=== PATIENT | female | born 1970 | race African-American/Black ===

== ENCOUNTER 2023-07-08 09:11 | Observation (INO) | payer OTHER ==
[2023-07-08 11:42] LABS: HEMATOCRIT 35.4 % (32.4-45.2); HEMOGLOBIN 11.3 GM/dL (10.7-15.3); MCH 26.6 pg (25.7-33.7); MEAN CELL VOLUME 83.2 fl (80-96); MEAN PLT VOLUME 7.3 fl (7.5-11.1); PLATELET COUNT 274 10^3/uL (134-434); RBC 4.26 M/mm3 (3.60-5.2); RDW 15.1 % (11.6-15.6); WHITE BLOOD COUNT 5.7 K/mm3 (4.0-10.0)
[2023-07-08] MEDS ORDERED: DIVALPROEX NA *ER* EXTEND REL 250 MG TABLET.SA ONE (11:43)
[2023-07-08] MEDS: DIVALPROEX NA *ER* EXTEND REL 250 MG TABLET.SA PO ONE (11:56)
[2023-07-08 11:59] LABS: CHLORIDE 105 mmol/L (98-107); SODIUM 136 mmol/L (136-145)
[2023-07-08 12:01] LABS: ALBUMIN 2.9 g/dl (3.4-5.0); CALCIUM 9.1 mg/dL (8.5-10.1)
[2023-07-08 12:02] LABS: BLOOD UREA NITROGEN 14.7 mg/dL (7-18); CO2 28 mmol/L (21-32); GLUCOSE,RANDOM 89 mg/dL (74-106)
[2023-07-08 12:04] LABS: SGPT/ALT 18 U/L (13-61)
[2023-07-08 12:05] LABS: CREATININE 0.8 mg/dL (0.55-1.3); SGOT/AST 45 U/L (15-37)
[2023-07-08 12:06] LABS: BILIRUBIN,TOTAL 0.3 mg/dL (0.2-1); TOT PROT 8.4 g/dl (6.4-8.2)
[2023-07-08 12:08] LABS: ALK PHOS 116 U/L (45-117)
[2023-07-08 12:09] LABS: ANION GAP 4 mmol/L (4-13); POTASSIUM 6.7 mmol/L (3.5-5.1)
[2023-07-08] MEDS ORDERED: VALPROATE SODIUM 500 MG/5 ML VIAL ONE (12:25)
[2023-07-08] MEDS: VALPROATE SODIUM 500 MG/5 ML VIAL IVPB ONE (13:13)
[2023-07-08 13:56] LABS: PH,URINE 7.5 (5.0-8.0); URINE APPEARANCE CLEAR; URINE BILIRUBIN NEGATIVE (NEGATIVE); URINE COLOR YELLOW; URINE GLUCOSE (UA) NEGATIVE (NEGATIVE); URINE KETONE NEGATIVE (NEGATIVE); URINE LEUK ESTERASE NEGATIVE (NEGATIVE); URINE NITRITE NEGATIVE (NEGATIVE); URINE PROTEIN NEGATIVE (NEGATIVE); URINE UROBILINOGEN 0.2 mg/dL (0.2-1.0)
[2023-07-08 14:15] LABS: POTASSIUM 3.8 mmol/L (3.5-5.1)
[2023-07-08 14:16] LABS: CALCIUM 9.1 mg/dL (8.5-10.1)
[2023-07-08 14:20] LABS: CREATININE 0.6 mg/dL (0.55-1.3)
[2023-07-08] MEDS ORDERED: levETIRAcetam 500 MG/5 ML INJECTION VIAL IVPB ONE (15:49)
[2023-07-08] MEDS ORDERED: CEFTRIAXONE 1 GM/50 ML BAG ONE (15:49)
[2023-07-08] MEDS ORDERED: AZITHROMYCIN IVPB 500 MG/250 ML BAG IVPB ONE (15:49)
[2023-07-08] MEDS: CEFTRIAXONE 1,000 MG in DEXTROSE 5%-WATER - 50 ML IVPB ONE (16:07)
[2023-07-08] MEDS: AZITHROMYCIN IVPB 500 MG in DEXTROSE 5%-WATER - 250 ML IVPB ONE (16:07)
[2023-07-08] MEDS: levETIRAcetam 500 MG/5 ML INJECTION VIAL IVPB ONE (16:07)
[2023-07-08] MEDS ORDERED: ALBUTEROL SO4 0.083% IH SOL 2.5 MG/3 ML VIAL.NEB. NEB PRN (17:11)
[2023-07-08] MEDS ORDERED: clonazePAM 0.5 MG TABLET ONE (22:40)
[2023-07-08] MEDS ORDERED: risperiDONE 0.5 MG TABLET ONE (22:40)
[2023-07-08] MEDS ORDERED: DOCUSATE SODIUM 100 MG CAPSULE (FP) PO ONE (22:41)
[2023-07-08] MEDS ORDERED: HEPARIN NA (PORCINE) 5,000 UNITS/ML 1ML VIAL ONE (22:41)
[2023-07-08] MEDS: HEPARIN NA (PORCINE) 5,000 UNITS/ML 1ML VIAL SQ SCH (22:54)
[2023-07-08] MEDS: DOCUSATE SODIUM 100 MG CAPSULE (FP) PO SCH (23:04)
[2023-07-08] MEDS: clonazePAM 0.5 MG TABLET PO SCH (23:04)
[2023-07-08] MEDS: risperiDONE 1 MG TABLET PO SCH (23:05)
[2023-07-09 00:24] VITALS: BMI 35.9
[2023-07-09 08:41] VITALS: RESP 18
[2023-07-09] MEDS: DIVALPROEX SODIUM 250 MG TABLET E.C. PO SCH (09:15)
[2023-07-09] MEDS: PANTOPRAZOLE 20 MG TABLET PO SCH (09:16)
[2023-07-09] MEDS: LEVOTHYROXINE NA 25 MCG TABLET (FP) PO SCH (09:16)
[2023-07-09] MEDS: BENZTROPINE MESYLATE 2 MG TABLET PO SCH (09:16)
[2023-07-09 09:31] LABS: BASO % 0.8 % (0-2.0); EOS % 1.9 % (0-4.5); HEMATOCRIT 33.9 % (32.4-45.2); HEMOGLOBIN 10.9 GM/dL (10.7-15.3); LYMPH % 38.6 % (8-40); MCH 26.5 pg (25.7-33.7); MCHC 32.3 g/dl (32.0-36.0); MEAN PLT VOLUME 7.8 fl (7.5-11.1); MONO % 6.8 % (3.8-10.2); NEUT % 51.9 % (42.8-82.8); PLATELET COUNT 288 10^3/uL (134-434); RBC 4.14 M/mm3 (3.60-5.2); RDW 14.8 % (11.6-15.6); WHITE BLOOD COUNT 5.5 K/mm3 (4.0-10.0)
[2023-07-09 09:41] LABS: POTASSIUM 4.2 mmol/L (3.5-5.1)
[2023-07-09 09:48] LABS: BLOOD UREA NITROGEN 14.9 mg/dL (7-18); CALCIUM 9.7 mg/dL (8.5-10.1)
[2023-07-09 09:51] LABS: CREATININE 0.7 mg/dL (0.55-1.3)
[2023-07-10] MEDS: BENZTROPINE MESYLATE 1 MG TABLET PO SCH (10:13)
[2023-07-10] MEDS: CALCIUM 500MG/VIT-D 200 UNITS COMBO TABLET (FP) PO SCH (10:14)
[2023-07-10 10:36] LABS: POTASSIUM 4.1 mmol/L (3.5-5.1)
[2023-07-10 10:38] LABS: ALBUMIN 2.7 g/dl (3.4-5.0); BLOOD UREA NITROGEN 12.5 mg/dL (7-18); CALCIUM 9.8 mg/dL (8.5-10.1)
[2023-07-10 10:41] LABS: CREATININE 0.7 mg/dL (0.55-1.3)
[2023-07-10 10:43] LABS: BILIRUBIN,TOTAL 0.3 mg/dL (0.2-1); TOT PROT 7.9 g/dl (6.4-8.2)
[2023-07-10] MEDS: DIVALPROEX SODIUM 500 MG TABLET E.C. PO SCH (11:46)
[2023-07-10] MEDS ORDERED: LEVOTHYROXINE NA 50 MCG TABLET (FP) PO SCH ×2 (22:54→23:00)
[2023-07-11] MEDS: LEVOTHYROXINE NA 50 MCG TABLET (FP) PO SCH (06:09)
[2023-07-11] MEDS: amLODIPine BESYLATE 5 MG TABLET (FP) PO SCH (09:11)
[2023-07-11 09:16] LABS: BASO % 0.7 % (0-2.0); EOS % 3.2 % (0-4.5); HEMOGLOBIN 11.6 GM/dL (10.7-15.3); LYMPH % 48.1 % (8-40); MCH 27.2 pg (25.7-33.7); MCHC 33.2 g/dl (32.0-36.0); MEAN CELL VOLUME 81.9 fl (80-96); MEAN PLT VOLUME 7.8 fl (7.5-11.1); MONO % 7.6 % (3.8-10.2); NEUT % 40.4 % (42.8-82.8); PLATELET COUNT 293 10^3/uL (134-434); RBC 4.27 M/mm3 (3.60-5.2); RDW 15.1 % (11.6-15.6); WHITE BLOOD COUNT 4.4 K/mm3 (4.0-10.0)
[2023-07-11 09:37] LABS: POTASSIUM 4.3 mmol/L (3.5-5.1)
[2023-07-11 09:42] LABS: CALCIUM 9.6 mg/dL (8.5-10.1)
[2023-07-11 09:43] LABS: BLOOD UREA NITROGEN 12.7 mg/dL (7-18); MAGNESIUM 2.1 mg/dL (1.8-2.4)
[2023-07-11 09:46] LABS: CREATININE 0.6 mg/dL (0.55-1.3); PHOSPHOROUS 3.7 mg/dL (2.5-4.9)
[2023-07-11 09:47] LABS: BILIRUBIN,TOTAL 0.4 mg/dL (0.2-1); TOT PROT 8.8 g/dl (6.4-8.2)
[2023-07-11 13:40] VITALS: BP 136/90; PULSE 74; TEMP 98.2
[2023-07-12] MEDS ORDERED: LEVOTHYROXINE NA 25 MCG TABLET (FP) PO SCH ×2 (07:00→22:53)
== END 2023-07-11 14:11 | disposition home or self-care (01) ==
LOC: JER 09:11 → INTOOBSV 15:59 → UNDOADMOB 15:59 → JERBED 15:59 → J6S 23:58 → JERBED 23:58 → J6S 23:58
PROVIDERS: ADMIT Internal Medicine; ATTEND Internal Medicine
PROC: 3E03329 Introduction of Other Anti-infective into Peripheral Vein, Percutaneous Approach (ICD-10-PCS; principal; 2023-07-08)
PROC: 3E023GC Introduction of Other Therapeutic Substance into Muscle, Percutaneous Approach (ICD-10-PCS; 2023-07-08)
PROC: 3E033GC Introduction of Other Therapeutic Substance into Peripheral Vein, Percutaneous Approach (ICD-10-PCS; 2023-07-08)
DX: G40.909 Epilepsy, unspecified, not intractable, without status epilepticus (principal); R93.89 Abnormal findings on diagnostic imaging of other specified body structures; F84.0 Autistic disorder; F41.9 Anxiety disorder, unspecified; E03.9 Hypothyroidism, unspecified; I10 Essential (primary) hypertension; Z96.643 Presence of artificial hip joint, bilateral
CPT/HCPCS: 36415; 70450-TC; 71045-TC-FY; 71046-TC-FY; 72125-TC; 80048; 80053; 80164; 80307; 81003; 83735; 84100; 85025; 85027; 93005; 93010; 94010; 96365; 96367; 96372; 96375; 99285-25; G0378; J1644

== ENCOUNTER 2023-09-01 04:20 | Observation (INO) | payer OTHER ==
[2023-09-01] MEDS ORDERED: ACETAMINOPHEN INJECTION 100 ML IVPB ONE (05:01)
[2023-09-01] MEDS: ACETAMINOPHEN 1000 MG/100 ML BAG IVPB ONE (05:31)
[2023-09-01] MEDS: LACTATED RINGERS SOLUTION 1000 ML INFUS.BAG IV ONE ×2 (05:31→11:17)
[2023-09-01 05:51] LABS: BASO % 0.3 % (0-2.0); EOS % 0.1 % (0-4.5); HEMATOCRIT 38.2 % (32.4-45.2); HEMOGLOBIN 12.1 GM/dL (10.7-15.3); LYMPH % 10.6 % (8-40); MCH 27.1 pg (25.7-33.7); MCHC 31.7 g/dl (32.0-36.0); MEAN CELL VOLUME 85.5 fl (80-96); MEAN PLT VOLUME 8.5 fl (7.5-11.1); MONO % 9.8 % (3.8-10.2); NEUT % 79.2 % (42.8-82.8); PLATELET COUNT 275 10^3/uL (134-434); RBC 4.47 M/mm3 (3.60-5.2); RDW 16.9 % (11.6-15.6); WHITE BLOOD COUNT 4.7 K/mm3 (4.0-10.0)
[2023-09-01 06:15] LABS: POTASSIUM 4.8 mmol/L (3.5-5.1)
[2023-09-01 06:18] LABS: BLOOD UREA NITROGEN 19.4 mg/dL (7-18); CALCIUM 9.5 mg/dL (8.5-10.1); MAGNESIUM 1.8 mg/dL (1.8-2.4)
[2023-09-01 06:21] LABS: CREATININE 1.3 mg/dL (0.55-1.3)
[2023-09-01 06:23] LABS: BILIRUBIN,TOTAL 0.3 mg/dL (0.2-1); TOT PROT 8.3 g/dl (6.4-8.2)
[2023-09-01] MEDS: SODIUM CHLORIDE 1,000 ML IV SCH (12:37)
[2023-09-01] MEDS: DIVALPROEX SODIUM 500 MG TABLET E.C. PO ONE (12:37)
[2023-09-01] MEDS: risperiDONE 1 MG TABLET PO ONE (12:37)
[2023-09-01 13:03] VITALS: RESP 18
[2023-09-01 13:10] VITALS: BMI 34.9
[2023-09-01] MEDS: BENZTROPINE MESYLATE 1 MG TABLET PO ONE (14:53)
[2023-09-01] MEDS: DIVALPROEX SODIUM 500 MG TABLET E.C. PO SCH (21:14)
[2023-09-01] MEDS: clonazePAM 0.5 MG TABLET PO SCH (21:14)
[2023-09-01] MEDS: risperiDONE 1 MG TABLET PO SCH (21:14)
[2023-09-01] MEDS: ARTIFICIAL TEARS OPHTHALMIC DROPS OU SCH (21:47)
[2023-09-02] MEDS: LEVOTHYROXINE NA 50 MCG TABLET (FP) PO SCH (06:04)
[2023-09-02 08:24] LABS: BASO % 0.6 % (0-2.0); EOS % 0.9 % (0-4.5); HEMATOCRIT 31.4 % (32.4-45.2); HEMOGLOBIN 10.3 GM/dL (10.7-15.3); LYMPH % 28.7 % (8-40); MCH 27.9 pg (25.7-33.7); MEAN CELL VOLUME 84.6 fl (80-96); MEAN PLT VOLUME 8.2 fl (7.5-11.1); MONO % 11.3 % (3.8-10.2); NEUT % 58.5 % (42.8-82.8); PLATELET COUNT 215 10^3/uL (134-434); RBC 3.71 M/mm3 (3.60-5.2); RDW 16.7 % (11.6-15.6)
[2023-09-02 08:45] LABS: POTASSIUM 3.5 mmol/L (3.5-5.1)
[2023-09-02 08:52] LABS: CALCIUM 8.4 mg/dL (8.5-10.1)
[2023-09-02 08:53] LABS: BLOOD UREA NITROGEN 12.6 mg/dL (7-18)
[2023-09-02 08:55] LABS: CREATININE 0.7 mg/dL (0.55-1.3)
[2023-09-02 08:57] LABS: BILIRUBIN,TOTAL 0.1 mg/dL (0.2-1); TOT PROT 6.7 g/dl (6.4-8.2)
[2023-09-02 09:03] LABS: ALBUMIN 2.3 g/dl (3.4-5.0)
[2023-09-02] MEDS: BENZTROPINE MESYLATE 1 MG TABLET PO SCH (09:31)
[2023-09-02 09:55] LABS: MAGNESIUM 1.8 mg/dL (1.8-2.4)
[2023-09-02] MEDS: POTASSIUM CHLORIDE ORAL LIQUID 20 MEQ/15 ML PO ONE (11:21)
[2023-09-02] MEDS: MINERAL OIL/PETROLATUM,WHITE 3.5 GM TUBE OU SCH (21:12)
[2023-09-02] MEDS: KETOCONAZOLE 2% CREAM - 60GM TUBE TP SCH (21:12)
[2023-09-02] MEDS: PETROLATUM TP SCH (21:13)
[2023-09-02] MEDS: CHOLECALCIFEROL (VIT D3) 400 UNIT (10 MCG) TABLET PO SCH (21:14)
[2023-09-02] MEDS: clonazePAM 0.5 MG TABLET PO SCH (21:17)
[2023-09-02] MEDS ORDERED: PATIENT'S OWN MEDICATION (NON-FORMULARY) (Pilocarpine Hcl [Pilocarpine Hcl] 5 MG Tablet) PO SCH (22:00)
[2023-09-02] MEDS ORDERED: PATIENT'S OWN MEDICATION (NON-FORMULARY) (Cyclosporine [Restasis] 1 EACH Droperette) OU SCH (22:00)
[2023-09-02] MEDS: LOPERAMIDE HCL 2 MG CAPSULE PO PRN (23:46)
[2023-09-03] MEDS: LEVOTHYROXINE NA 25 MCG TABLET (FP) PO SCH (06:02)
[2023-09-03 07:31] VITALS: BP 127/82; PULSE 72; TEMP 98.2
[2023-09-03 08:03] LABS: HEMATOCRIT 31.9 % (32.4-45.2); HEMOGLOBIN 10.2 GM/dL (10.7-15.3); MCH 27.3 pg (25.7-33.7); MEAN CELL VOLUME 85.3 fl (80-96); MEAN PLT VOLUME 8.5 fl (7.5-11.1); PLATELET COUNT 225 10^3/uL (134-434); RBC 3.74 M/mm3 (3.60-5.2); RDW 16.3 % (11.6-15.6); WHITE BLOOD COUNT 4.2 K/mm3 (4.0-10.0)
[2023-09-03 08:45] LABS: POTASSIUM 3.6 mmol/L (3.5-5.1)
[2023-09-03 09:05] LABS: CALCIUM 8.9 mg/dL (8.5-10.1)
[2023-09-03 09:06] LABS: BLOOD UREA NITROGEN 5.2 mg/dL (7-18)
[2023-09-03 09:08] LABS: CREATININE 0.6 mg/dL (0.55-1.3)
[2023-09-03] MEDS: PANTOPRAZOLE 20 MG TABLET PO SCH (10:11)
[2023-09-03] MEDS: CALCIUM 500MG/VIT-D 200 UNITS COMBO TABLET (FP) PO SCH (10:11)
== END 2023-09-03 12:44 | disposition home or self-care (01) ==
LOC: JER 04:20 → JERBED 10:08 → J7W 11:27
PROVIDERS: ADMIT Internal Medicine; ATTEND Internal Medicine
PROC: 3E033NZ Introduction of Analgesics, Hypnotics, Sedatives into Peripheral Vein, Percutaneous Approach (ICD-10-PCS; principal; 2023-09-01)
PROC: 3E0337Z Introduction of Electrolytic and Water Balance Substance into Peripheral Vein, Percutaneous Approach (ICD-10-PCS; 2023-09-01)
PROC: 3E03329 Introduction of Other Anti-infective into Peripheral Vein, Percutaneous Approach (ICD-10-PCS; 2023-09-01)
DX: K52.9 Noninfective gastroenteritis and colitis, unspecified (principal); F84.0 Autistic disorder; N17.9 Acute kidney failure, unspecified; G40.909 Epilepsy, unspecified, not intractable, without status epilepticus; E03.9 Hypothyroidism, unspecified; E86.0 Dehydration; Z96.643 Presence of artificial hip joint, bilateral; Z88.8 Allergy status to other drugs, medicaments and biological substances; Z91.010 Allergy to peanuts
CPT/HCPCS: 36415; 74177-TC; 80048; 80053; 83690; 83735; 84100; 84484; 85025; 85027; 87045; 87046; 87186; 87205; 87425; 87493; 93005; 93010; 96361; 96365; 96374; 99285-25; G0378; J0131; Q9967